=== PATIENT | female | born 1975 | race Caucasian/White ===

== ENCOUNTER → 2016-07-22 | Outpatient (CLI) | payer OTHER ==
--- NOTE | 2016-07-22 11:09 | MA ---
Diagnostic Digital Bilateral Mammogram History: Evaluate nodule inner right breast New thickening lower left breast identified by patient. Comparison: Screening mammogram 06/11/2016. Technique: A true lateral view and 2 spot compression views of each breast. Density: D Findings: Right: A small nodule medially inner right breast persists and measures approximately 4.3 m m. It has microlobulated margins. There is no associated calcification.. Left: No mammographic abnormality associated with the palpable thickening. This is in an area of extr gloria dense breast parenchyma which could obscure an abnormality. Impression: Further imaging bilaterally, with ultrasound. This will be performed shortly. BI-RADS: 0
--- NOTE | 2016-07-22 11:39 | US ---
Bilateral Breast Ultrasound History: Nodule inner right breast, palpable thickening lower left breast Technique: I first performed a directed physical examination. This was followed by ultrasound exam with a high frequency linear transducer. Findings: Left breast: There is an easily palpable, anti radially oriented, ridge in the lower left b reast that correlates to a band of normal parenchyma at the 5 o'clock radial 5 cm from the nipple. Right breast: There is a subtly palpable 5 mm nodule at the 5 o'clock radial 3 cm from the nipple whi ch on ultrasound correlates to a 5 mm small cyst with a partial thin internal septation. There is no internal vascularity or nodularity. Impression: The nodule seen on mammography is likely a benign cyst. Recommendation: 1. Six-month follow-up right breast mammogram and sonogram to ensure stability of a s mall simple cyst. 2. The ridge in the lower left breast is normal breast parenchyma on both the mammogram and ultrasoun d. It can be followed on serial physical examination. The patient will receive a letter in 6 months for right breast follow-up. She was instructed to retur n for repeat imaging if any of the palpable findings increase in size. BI-RADS 3. Probably benign.
== END ==
LOC: BRMIMAGING 10:02
PROVIDERS: ATTEND Family Medicine
DX: Z12.39 Encounter for other screening for malignant neoplasm of breast (principal); N63 Unspecified lump in breast
CPT/HCPCS: 76641-PO; G0204

== ENCOUNTER → 2017-04-27 | Outpatient (CLI) | payer OTHER | LOC: BRMIMAGING 09:17 | PROVIDERS: ATTEND Family Medicine | DX: Z12.39 Encounter for other screening for malignant neoplasm of breast (principal); R92.8 Other abnormal and inconclusive findings on diagnostic imaging of breast | CPT/HCPCS: 76641-PO; G0204 ==

== ENCOUNTER → 2018-07-21 | Outpatient (CLI) | payer OTHER | LOC: BRMIMAGING 11:25 | PROVIDERS: ATTEND Family Medicine | DX: Z12.31 Encounter for screening mammogram for malignant neoplasm of breast (principal); Z80.3 Family history of malignant neoplasm of breast ==